=== PATIENT | female | born 1980 | race Caucasian/White ===

== ENCOUNTER 2016-06-06 15:05 | Emergency (ER) ==
[2016-06-06 15:43] LABS: MANUAL DIFF NEEDED? NO
[2016-06-06 15:52] LABS: BASO% 0.2 % (0.0-0.8); EOS# 0.04 X1000 (0.0-0.7); EOS% 0.3 % (0.0-10.0); IMM GRAN# 0.04 X1000 (0.0-0.04); IMM GRAN% 0.3 % (0.0-0.5); LYMPH# 2.82 X1000 (1.2-3.4); LYMPH% 20.2 % (20.5-51.1); MCH 32.2 PG (27-31); MCHC 34.8 g/dL (33-37); MCV 92.6 FL (81-99); MONO# 0.78 X1000 (0.11-0.59); MONO% 5.6 % (1.7-9.3); MPV 10.9 FL (7.4-10.4); NEUT% 73.4 % (42.2-75.2); PLT 348 X1000 (130-400); RBC 4.97 XMIL (4.2-5.4)
[2016-06-06 16:04] LABS: URINE CULTURE NEEDED? NO; URINE MICRO REVIEW NEEDED? NO; URINE SOURCE CLEAN CATCH
[2016-06-06 16:11] LABS: AGAP 16; ALBUMIN 4.5 g/dL (3.5-5.0); ALKALINE PHOSPHATASE 106 U/L (32-104); AMYLASE 55 U/L (20-200); BUN 9 mg/dL (8-22); CALCIUM 9.4 mg/dL (8.8-10.2); CHLORIDE 98 mmol/L (98-107); COSMO 269; GOT 44 U/L (10-30); GPT 52 U/L (10-36); LIPASE 33 U/L (13-60); POTASSIUM 3.9 mmol/L (3.5-5.1); SODIUM 135 mmol/L (136-145); TCO2 21 mmol/L (25-35); TOTAL PROTEIN 7.4 g/dL (6.3-8.3)
[2016-06-06 16:16] LABS: BILIRUBIN URINE NEGATIVE (NEGATIVE); BLOOD URINE NEGATIVE (NEGATIVE); COLOR STRAW; GLUCOSE URINE NEGATIVE (NEGATIVE); LEUKOCYTES URINE NEGATIVE (NEGATIVE); NITRITE URINE NEGATIVE (NEGATIVE); PH URINE 6.5; PROTEIN URINE NEGATIVE (NEGATIVE); SP GRAVITY URINE 1.001; TURBIDITY URINE CLEAR (CLEAR); UROBILINOGEN URINE NORMAL (NORMAL)
[2016-06-06 16:18] LABS: UR EPITHELIAL CELLS <10 /HPF (<10); URINE BACTERIA NEGATIVE /HPF; URINE RBC <10 /HPF (<10); URINE WBC <10 /HPF (<10)
--- NOTE | 2016-06-06 17:38 | PROVIDER DOCUMENTATION ---
HPI-Abdominal Pain/GI Problem - General Chief Complaint: Flank Pain Stated Complaint: LOWER ABD/BACK PAIN Time Seen by Provider: 06/06/16 17:27 Source: patient Allergies/Adverse Reactions: Patient Allergies Allergy/AdvReac Type Severity Reaction Status Date / Time No Known Allergies Allergy Verified 06/06/16 17:35 Home Medications: Home Medication List Medication Instructions Recorded Confirmed Last Taken Type Acetaminophen/Diphenhydramine 1 each PO Q6-8H PRN PRN #30 tablet 06/06/16 Unknown Rx [Percogesic 325-12.5 mg Tablet] Esomeprazole [Nexium] 40 mg PO DAILY #30 capsule 06/06/16 Unknown Rx Promethazine [Phenergan] 25 mg PO Q6H PRN PRN #20 tablet 06/06/16 Unknown Rx - History of Present Illness-ABD Nature of Presenting Problems: Pt presents to ED with c/o of RLQ abdominal pain and right lower back pain that started 3-4 days ago. She reports that she has had N/V/D for 2 weeks. States she had 2 episodes of diarrhea today. Denies fever, body aches, hematuria, dysuria. Reports chills. Abdominal Pain Onset Location: reports: RLQ Pain Radiation: reports: flank Quality of Pain: reports: aching, sharp Severity in ED: reports: moderate Onset/Duration: reports: other (see hpi) Timing: reports: still present Modifying Factors: improves with: palpation, vomiting Associated Symptoms: reports: nausea, vomiting Last BM: this morning Dark Stools Present?: reports: none noticed Rectal Bleeding: reports: none Rectal Pain: reports: none Emesis Description: reports: none Bruising or Bleeding Gums?: No Similar Symptoms Previously?: No Recently seen or treated by another doctor?: No Review of Systems - Adult - REVIEW OF SYSTEMS - ADULT Constitutional: reports: no symptoms reported. denies: chills, fever Eyes: reports: no symptoms reported. denies: discharge, dry eyes Ears, Nose, Mouth & Throat: reports: no symptoms reported. denies: ear discharge, ear pain Cardiovascular: reports: no symptoms reported. denies: chest pain, edema Respiratory: reports: no symptoms reported. denies: chronic cough, cough Gastrointestinal: reports: abdominal pain, nausea, vomiting. denies: difficulty swallowing, frequent heartburn Genitourinary: reports: no symptoms reported. denies: dysuria, discharge Musculoskeletal: reports: no symptoms reported. denies: bone pain, back pain Integumentary: reports: no symptoms reported. denies: hives, hair loss Neurological: reports: no symptoms reported. denies: ataxia, dizziness/vertigo Psychiatric: reports: no symptoms reported. denies: anxiety, anti-depressant use Endocrine: reports: no symptoms reported Hematologic/Lymphatic: reports: no symptoms reported Allergic/Immunologic: reports: no symptoms reported All Other Systems: Reviewed and Negative Past History - Adult - PAST MEDICAL HISTORY-ADULT Review of Records: reports: Old Records Reviewed, Nursing Assessment Review, Medications Reviewed, Social history reviewed & non-contributory. Major Childhood Illnesses: reports: denies history Cardiovascular: reports: denies history Respiratory: reports: denies history Gastrointestinal: reports: denies history Obstetrical/Gynecological: reports: denies history Genitourinary: reports: denies history Musculoskeletal: reports: denies history Neurological: reports: denies history Endocrine/Immune: reports: denies history Other Conditions: reports: denies history - IMMUNIZATION STATUS Childhood Immunizations: See Nurse Assessment Flu Vaccine: See Nurse Assessment - SOCIAL HISTORY Smoking: cigarettes, less than 1 pack/day Provider spent 3-5 mins advising pt. on dangers of tobacco.: Discussed manners to quit use, and f/u contacts for add'l counseling. Substance Use: alcohol Alcohol Use Frequency: every day Physical Exam-General - PHYSICAL EXAM-ADULT Initial Vital Signs Reviewed: Yes - CONSTITUTIONAL General Appearance: appears well, alert, no apparent distress - EYES Eyes: PERRL/EOMI, pink conjunctivae - HEAD, EARS, NOSE, MOUTH & THROAT HENMT: normocephalic/atraumatic, moist mucous membranes, normal ENT inspection - NECK Neck: non-tender, full range of motion, supple, normal inspection - RESPIRATORY Respiratory: chest non-tender, lungs clear, normal breath sounds, no pleuratic chest pain, no respiratory distress, no accessory muscle use. negative: respiratory distress, decreased breath sounds, accessory muscle use - CARDIOVASCULAR Cardiovascular: normal peripheral pulses, no edema, no gallop, no JVD, no murmur , tachycardia - GASTROINTESTINAL (ABDOMEN) Abdominal Exam: normal bowel sounds, soft, no organomegaly, no pulsatile mass, tenderness (RLQ), psoas. negative: abdominal bruit, abnormal bowel sounds, distended, guarding, rigid, rebound, McBurney's point tenderness, Fierro's sign - MUSCULOSKELETAL Back Exam: normal inspection, no CVA tenderness, no vertebral tenderness Extremity: normal range of motion, non-tender, normal gait, normal inspection - SKIN Integumentary: normal color, normal turgor, warm/dry - NEUROLOGIC Neurologic: grossly normal, no motor/sensory deficits Progress - PLAN OF CARE/RESULTS Progress/Plan/Lab Results: Laboratory Tests 06/06/16 06/06/16 06/06/16 15:31 15:31 15:31 WBC 13.93 H RBC 4.97 Hgb 16.0 Hct 46.0 MCV 92.6 MCH 32.2 H MCHC 34.8 RDW Std Deviation 12.7 Plt Count 348 MPV 10.9 H Immature Gran % (Auto) 0.3 Neut % (Auto) 73.4 Lymph % (Auto) 20.2 L Kimble % (Auto) 5.6 Eos % (Auto) 0.3 Baso % (Auto) 0.2 Immature Gran # (Auto) 0.04 Neut # (Auto) 10.22 H Lymph # (Auto) 2.82 Kimble # (Auto) 0.78 H Eos # (Auto) 0.04 Baso # (Auto) 0.03 Sodium 135 L Potassium 3.9 Chloride 98 Carbon Dioxide 21 L Anion Gap 16 BUN 9 Creatinine 0.6 Estimated GFR/1.73 m2 > 60 BUN/Creatinine Ratio 15 Glucose 94 Calculated Osmolality 269 Calcium 9.4 Total Bilirubin 0.30 AST 44 H ALT 52 H Alkaline Phosphatase 106 H Total Protein 7.4 Albumin 4.5 Globulin 2.9 Albumin/Globulin Ratio 1.6 Amylase 55 Lipase 33 Urine Source CLEAN CATCH Urine Color STRAW Urine Turbidity CLEAR Urine pH 6.5 Ur Specific Paia 1.001 Urine Protein NEGATIVE Ur Glucose (Stick) NEGATIVE Ur Ketones (Stick) NEGATIVE Urine Blood NEGATIVE Urine Nitrite NEGATIVE Urine Bilirubin NEGATIVE Urobilinogen Dipstick NORMAL Urine Leukocytes NEGATIVE Urine WBC (Auto) <10 Urine RBC (Auto) <10 U Epithel Cells (Auto) <10 Urine Bacteria (Auto) NEGATIVE Orders Category Date Time Status ED: Urine Bedside ORDERED Care 06/06/16 15:26 Active Saline Loc NOW Care 06/06/16 17:[address] ABD/PELVIS W/ IV CONT ONLY [CT] Stat Exams 06/06/16 17:51 Ordered AMYLASE [CHEM] Stat Lab 06/06/16 15:31 Completed CBC WITH ELECTRONIC DIFF [HEME] Stat Lab 06/06/16 15:31 Completed COMPREHENSIVE METABOLIC PANEL [CHEM] Stat Lab 06/06/16 15:31 Completed LIPASE [CHEM] Stat Lab 06/06/16 15:31 Completed URINALYSIS W/POSS RFLX CULT [URINALYSIS] Stat Lab 06/06/16 15:31 Completed 0.9% Sodium Chloride Inj [Ns] 1,000 ml Med 06/06/16 17:50 Discontinued IV 999 mls/hr CefTRIAXONE 1 GM/NS [Rocephin 1 gm/Ns] 50 ml Med 06/06/16 19:29 Active IV NOW Lido/Cole Alk/Al&mg Hydrox [G.i. Cocktail] Med 06/06/16 19:29 Discontinued 30 ml PO NOW ONE Morphine Med 06/06/16 17:51 Discontinued 4 mg IV NOW ONE Ondansetron [Zofran] Med 06/06/16 17:51 Discontinued 4 mg IV NOW ONE Vital Signs Temp Pulse Resp BP Pulse Ox 06/06/16 15:22 98.0 F 115 H 18 128/76 100 No Known Allergies Allergy (Verified 06/06/16 17:35) No Home Medications 06/06/16 I&O 06/05/16 06/06/16 06/07/16 06:59 06:59 06:59 Output Total 20 Balance -20 Laboratory 06/06/16 06/06/16 06/06/16 15:31 15:31 15:31 WBC 13.93 H RBC 4.97 Hgb 16.0 Hct 46.0 MCV 92.6 MCH 32.2 H MCHC 34.8 RDW Std Deviation 12.7 Plt Count 348 MPV 10.9 H Immature Gran % (Auto) 0.3 Neut % (Auto) 73.4 Lymph % (Auto) 20.2 L Kimble % (Auto) 5.6 Eos % (Auto) 0.3 Baso % (Auto) 0.2 Immature Gran # (Auto) 0.04 Neut # (Auto) 10.22 H Lymph # (Auto) 2.82 Kimble # (Auto) 0.78 H Eos # (Auto) 0.04 Baso # (Auto) 0.03 Sodium 135 L Potassium 3.9 Chloride 98 Carbon Dioxide 21 L Anion Gap 16 BUN 9 Creatinine 0.6 Estimated GFR/1.73 m2 > 60 BUN/Creatinine Ratio 15 Glucose 94 Calculated Osmolality 269 Calcium 9.4 Total Bilirubin 0.30 AST 44 H ALT 52 H Alkaline Phosphatase 106 H Total Protein 7.4 Albumin 4.5 Globulin 2.9 Albumin/Globulin Ratio 1.6 Amylase 55 Lipase 33 Urine Source CLEAN CATCH Urine Color STRAW Urine Turbidity CLEAR Urine pH 6.5 Ur Specific Paia 1.001 Urine Protein NEGATIVE Ur Glucose (Stick) NEGATIVE Ur Ketones (Stick) NEGATIVE Urine Blood NEGATIVE Urine Nitrite NEGATIVE Urine Bilirubin NEGATIVE Urobilinogen Dipstick NORMAL Urine Leukocytes NEGATIVE Urine WBC (Auto) <10 Urine RBC (Auto) <10 U Epithel Cells (Auto) <10 Urine Bacteria (Auto) NEGATIVE Pt is feeling well. Discussed results c her. Will have her f/u c GI if symptoms persist. She is in agreement. - CT/MRI 1 CT Study: Abdomen, Pelvis CT Results: fatty liver; otherwise NAD Departure - Departure Time of Disposition Order: 19:32 DIAGNOSIS: Abdominal pain Qualifiers: Abdominal location: right lower quadrant Qualified Code(s): R10.31 - Right lower quadrant pain Nausea & vomiting Qualifiers: Vomiting type: unspecified Vomiting Intractability: non-intractable Qualified Code(s): R11.2 - Nausea with vomiting, unspecified Disposition: HOME 01 Certified Medical Emergency: Emergent Condition: Good Additional Instructions: Take medication as prescribed. Eat a bland diet and stay well hydrated. Follow up with a GI physician. Return to the ER for any new or worsening symptoms. ED Follow Up Instructions: You have been treated by a care provider in the Emergency Department. These instructions are being provided to you so you can have an understanding of how to care for yourself upon discharge. Upon discharge from the Emergency Department, you are responsible for making arrangements for follow-up care by a physician of your choice. Take all prescribed medications as directed. Return to the Emergency Department immediately for any new or worsening symptoms. You may call the Physician Referral phone number at [phone] to obtain a list of Physicians who are taking new patients. Prescriptions: Esomeprazole [Nexium] 40 mg PO DAILY #30 capsule Acetaminophen/Diphenhydramine [Percogesic 325-12.5 mg Tablet] 1 each PO Q6-8H PRN PRN #30 tablet PRN Reason: Pain Promethazine [Phenergan] 25 mg PO Q6H PRN PRN #20 tablet PRN Reason: Nausea Referrals: None,PCP [Primary Care Provider] - Yemi Albarran MD [STAFF PHYSICIAN] - Attestation - Physician/ ELFEGO Attestation Patient care was provided by Advanced Practice Provider:: Yes Advanced Practice Provider:: Ruben Peguero Advanced Practice Provider documentation review:: The Mid-level provider documentation, treatment plan and medical decision making was reviewed by the physician who agrees with all treatment and medical decision making by the MLP.
[2016-06-06] MEDS ORDERED: NS 1,000 ML IV ONE (17:50)
[2016-06-06] MEDS ORDERED: ZOFRAN IV ONE (17:51)
[2016-06-06] MEDS ORDERED: MORPHINE IV ONE (17:51)
[2016-06-06] MEDS ORDERED: G.I. COCKTAIL PO ONE (19:29)
[2016-06-06] MEDS ORDERED: ROCEPHIN 1 GM/NS 50 ML IV ONE (19:29)
[2016-06-06 20:57] VITALS: BP 125/82
--- NOTE | 2016-06-07 10:39 | Diag Imaging Result Document ---
PROCEDURE NAME: CT ABD/PELVIS W/ IV CONT ONLY - 06/06/2016 CT ABDOMEN AND PELVIS WITH IV CONTRAST ONLY: Exam performed with intravenous contrast only per request of the referring provider. A dose-reduction protocol was used. COMPARISON: No comparison exam. FINDINGS: The visualized lung bases appear clear. The liver is of diffusely decreased attenuation consistent with fatty infiltration. There is no focal liver lesion identified. The spleen, adrenal glands, and pancreas are unremarkable. There are no calcified gallstones or pericholecystic inflammation seen. The bilateral kidneys enhance homogeneously. There is no hydronephrosis. There are no substantially enlarged lymph nodes identified. There is no evidence of bowel obstruction. The appendix has air in the lumen and shows no evidence of inflammation. There is no substantial bowel wall thickening identified. There is no abscess identified. There is no free air. There is no substantial free fluid. Images of the pelvis show no abnormal mass or fluid collection. IMPRESSION: 1. Fatty infiltration of liver. Unremarkable gallbladder. 2. Unremarkable kidneys. No hydronephrosis. 3. No bowel obstruction. No evidence of appendicitis. 4. No abscess. No free air. The on-call radiologist provided preliminary results at 7:22 p.m. on 06/06/2016.
== END 2016-06-06 20:56 | disposition home or self-care (01) ==
LOC: ED 15:05
DX: R10.31 Right lower quadrant pain (principal); R11.2 Nausea with vomiting, unspecified; K76.0 Fatty (change of) liver, not elsewhere classified; M54.5 Low back pain; R19.7 Diarrhea, unspecified; F17.210 Nicotine dependence, cigarettes, uncomplicated; Z71.6 Tobacco abuse counseling
CPT/HCPCS: 74177; 80053; 81001; 82150; 83690; 85025; J0696; J2270; J2405; J7030; Q9967